=== PATIENT | female | born 2000 | race Caucasian/White ===

== ENCOUNTER 2022-06-27 22:08 | Emergency (ER) | payer BC, SELFPAY ==
[2022-06-27 22:14] VITALS: BP 131/86; PULSE 113; RESP 14; TEMP 37; O2SAT 100
--- NOTE | 2022-06-28 01:00 | ED.SKABFB ---
HPI - Skin/Abscess/Foreign Bdy General Chief complaint: Skin/Abscess/Foreign Body <Lucila Clark PA-C - Last Filed: 06/28/22 01:23> Stated complaint: Bug bite <Lucila Clark PA-C - Last Filed: 06/28/22 01:23> Time Seen by Provider: 06/28/22 00:06 <Lucila Clark PA-C - Last Filed: 06/28/22 01:23> History of Present Illness HPI narrative: 22-year-old female reports for evaluation of redness to her right breast for 1 week. Patient states she sleeps in a bed in her dorm that is close to window and she is concerned it may be a spider bite. She reports the redness is increasing in size. She denies pain, itchiness, fever, bodies, chills, drainage, breast pain. She reports she did not see a bug bite her. <Lucila Clark PA-C - Last Filed: 06/28/22 01:23> Related Data Allergies/Adverse reactions: Allergies Allergy/AdvReac Type Severity Reaction Status Date / Time No Known Allergies Allergy Verified 06/28/22 00:07 <ROBERTO Medina Last Filed: 06/28/22 01:23> Review of Systems Review of Systems: CONSTITUTIONAL: Denies fever, chills EYES: Denies visual changes, redness, or discharge. ENT: Denies rhinorrhea, congestion, sore throat, or otalgia. CARDIOVASCULAR: Denies chest pain, palpitations, or edema. RESPIRATORY: Denies cough or dyspnea. GASTROINTESTINAL: Denies abdominal pain, nausea, vomiting, or diarrhea. GENITOURINARY: Denies dysuria or hematuria. SKIN: See HPI MUSCULOSKELETAL: Denies back pain, joint pain, or myalgia. NEUROLOGIC: Denies headache, numbness, dizziness, or weakness. PSYCHIATRIC: Denies anxiety or depression. <Lucila Clark PA-C - Last Filed: 06/28/22 01:23> Exam Narrative: GENERAL: Well-appearing, well-nourished, and in no acute distress. Patient resting comfortably in exam bed. She is pleasant and conversational. HEAD: Normocephalic, atraumatic. ENT: Nares clear, no rhinorrhea or epistaxis. Mucous membranes moist. Oropharynx without tonsillar hypertrophy exudate or other lesions. NECK: Supple. No adenopathy or masses. CHEST: Clear to auscultation. No respiratory distress. No wheezes rales or rhonchi HEART: Regular rate and rhythm. No murmur heard. Normal peripheral pulses. ABDOMEN: Soft, nontender, nondistended, normal active bowel sounds. EXTREMITIES: Normal range of motion. No edema. SKIN: There is a 2 cm area of erythema to the medial aspect of the patient's right breast with 1cm area of increased erythema. No areas of significant induration or fluctuation, no pustule. Breast exam w/o masses or deformities appreciated. Nipples are everted and w/o drainage. No axillary lymphadenopathy.. NEURO: No focal deficits. Alert and oriented x3. PSYCH: Normal mood and affect. <Lucila Clark PA-C - Last Filed: 06/28/22 01:23> Course EVP CHIEF EXPLORATION OFFICER/PA Physician Supervision This is a was performed by both a physician and an APC. I performed all aspects of the MDM as documented w/ the following additions: 22-year-old female presenting ED with chief complaint of a red spot on her breast. Ultrasound showed a very small less than 2 mm fluid collection. It is possible this is an early abscess but is too small to drain. Patient will be trialed on a course of antibiotics with return precautions All questions answered. Patient in agreement w/ disposition. <Jonatan Magana MD - Last Filed: 06/28/22 06:17> Vital Signs Vital signs: Vital Signs Temperature 98.6 F 06/27/22 22:14 Pulse Rate 113 H 06/27/22 22:14 Respiratory Rate 14 06/27/22 22:14 Blood Pressure 131/86 06/27/22 22:14 Pulse Oximetry 100 06/27/22 22:14 Oxygen Delivery Room Air 06/27/22 22:14 Temperature 98.6 F 06/27/22 22:14 Pulse Rate 98 06/28/22 01:32 Respiratory Rate 16 06/28/22 01:32 Blood Pressure 131/86 06/27/22 22:14 Pulse Oximetry 100 06/28/22 01:32 Oxygen Delivery Room Air 06/27/22 22:14 <Lucila Clark PA-C - Last Filed:
[2022-06-28] MEDS: CEPHALEXIN 500 MG CAPSULE PO (01:05)
[2022-06-28] MEDS: SULFAMETHOXAZOLE/TRIMETHOPRIM 800/160 MG DS TABLET 1 TAB PO (01:30)
[2022-06-28 01:32] VITALS: PULSE 98; RESP 16; O2SAT 100
== END 2022-06-28 01:33 | disposition home or self-care (01) ==
PROVIDERS: Emergency Provider Physician Assistant
DX: N61.0 Mastitis without abscess (principal)
CPT/HCPCS: 99283; A9270